=== PATIENT | male | born 1960 | race Caucasian/White ===

== ENCOUNTER → 2017-03-26 | Day surgery (SDC) | payer MEDICAID ==
[~2017-03-26] VITALS: Ht 185.4 cm; Wt 85.5 kg
[~2017-03-26] MED LIST: *MEPERIDINE 25 MG INJ VIAL PERIprocedural Use ONLY ONE; *RESP: ALBUTEROL 2.5 MG/3 ML NEB (PRN) PERIprocedural Use ONLY NEB ONE; ALPR.5 PO; AMPICILLIN 1 GM/NS 100 ML IV SCH; BELLADONNA ALKALOIDS/OPIUM 60 MG SUPP RECTAL ONE; CHLORHEXIDINE GLUCONATE 2 % 1 PACK (2 CLOTHS) TOPICAL PRN; DEXA4TAB PO; DEXAMETHASONE SOD PHOS 4 MG/ML VIAL IV ONE; DO NOT ADM ANY ANTICOAGULANT DRUGS PRN; FENT25DI T-DERMAL; FOLI400T PO; GENTAMICIN INJ 240 MG in SODIUM CHLORIDE 0.9% INJ 100 ML IV SCH; GLYCOPYRROLATE 1 MG/5 ML SYRINGE IV PUSH ONE; INSULIN HUMAN REGULAR 1,000 UNITS/10 ML VIAL SQ PRN; IOHEXOL 350 MG/ML 50 ML BTL (for RAD DIAG) OTHER ONE; LACTATED RINGER'S 1000 ML IV PRN; LEVE500 PO; LIDOCAINE HCL 1% PF 5 ML SYRINGE OTHER ONE; MEGE40SU PO; METOPROLOL TARTRATE 25 MG TAB PO PRN; MORPHINE SULFATE 2 MG/ML INJ IV PUSH PRN; NEOSTIGMINE 5 MG/5 ML SYRINGE IV PUSH ONE; ONDA8TAB7 PO; ONDANSETRON HCL 4 MG/2 ML VIAL IV ONE; ONDANSETRON HCL 4 MG/2 ML VIAL IV PUSH PRN; OXYC-395 PO; OXYC15TA PO; PANT40TA3 PO; POVIDONE IODINE 5% (ANTISEPSIS KIT) 4 APPLICATIONS EACH NARE PRN; PROPOFOL 200 MG/20 ML AMP IV ONE; ROCURONIUM INJ 50 MG/5 ML SYRINGE IV PUSH ONE; SODIUM CHLORID 0.9% 500 ML IV PRN; XARE20TA PO; oxyCODONE/ACETAMINOPHEN 5 MG/325 MG TAB ONE; oxyCODONE/ACETAMINOPHEN 5 MG/325 MG TAB PO PRN
--- NOTE | 2017-03-26 10:46 | RADRPT ---
EXAM DATE/TIME: 03/26/2017 10:12 [place] COMPARISON: No previous studies available for comparison. INDICATIONS : Pre op for kidney stones MEDICAL HISTORY : kidney stones for many years SURGICAL HISTORY : stent for kidney stones ENCOUNTER: Initial ACUITY: 1 day PAIN SCORE: 10/10 LOCATION: Bilateral abdomen FINDINGS: A double-J left ureteral stent is present in good position. There is a 17 mm stone overlying the prox imal aspect of the stent in the proximal left ureter. There also appears to be a slightly less than 1 0 mm stone in the mid to lower pole collecting system. Intestinal gas pattern is nonspecific and tish gn. There are degenerative changes in the bony elements. CONCLUSION: Left kidney and ureteral stones. Left ureteral stent in good position Keith Abbasi MD on March 26, 2017 at 10:41 Board Certified Radiologist. This report was verified electronically.
[2017-03-26 11:24] LABS: AUTOMATED NEUTROPHIL # 11.3 TH/MM3 (1.8-7.7); BASOPHIL # 0.1 TH/MM3 (0-0.2); BASOPHIL % 0.5 % (0.0-2.0); EOSINOPHIL # 0.2 TH/MM3 (0-0.4); EOSINOPHIL % 1.8 % (0.0-4.0); HEMATOCRIT 44.1 % (39.0-51.0); HEMOGLOBIN 15.1 GM/DL (13.0-17.0); LYMPH % 3.9 % (9.0-44.0); LYMPHOCYTE # 0.5 TH/MM3 (1.0-4.8); MEAN CELL VOLUME 96.8 FL (80.0-100.0); MEAN CORPUSCULAR HEMOGLOBIN 33.2 PG (27.0-34.0); MEAN CORPUSCULAR HGB CONC 34.3 % (32.0-36.0); MEAN PLATELET VOLUME 7.5 FL (7.0-11.0); MONO % 4.3 % (0.0-8.0); MONOCYTE # 0.5 TH/MM3 (0-0.9); NEUT % 89.5 % (16.0-70.0); PLATELET COUNT 229 TH/MM3 (150-450); RED BLOOD COUNT 4.56 MIL/MM3 (4.50-5.90); RED CELL DISTRIBUTION WIDTH 14.1 % (11.6-17.2); WHITE BLOOD COUNT 12.6 TH/MM3 (4.0-11.0)
--- NOTE | 2017-03-26 14:38 | EKG ---
Date Performed: 03/26/2017 Time Performed: 10:31:01 PTAGE: 56 years EKG: Sinus rhythm NONSPECIFIC T-WAVE ABNORMALITY POSSIBLE INFERIOR INFARCT, AGE UNDETERMINED BORDERLINE ECG NO PREVIOUS TRACING DOCTOR: Vinay Perry Interpretating Date/Time 03/26/2017 14:33:03
--- NOTE | 2017-03-26 15:31 | PD.OP ---
Operative Report Date of Surgery: Mar 26, 2017 Preoperative Diagnosis: Left ureteral and renal stones Postoperative Diagnosis: Same Procedure: Cystoscopy, left ureteroscopy, laser lithotripsy, stone extraction, left double- J stent exchange Anesthesia: WALTER Surgeon: Ke Carrasco Standards Analyst(s): None Resident Surgeon: None Operation and Findings: 56-year-old male with history of metastatic lung cancer and history of recurrent nephrolithiasis. Patient had a stent placed in the past [facility] and was referred to the clinic. CT scan revealed a 1.7 proximal left ureteral stone and a 1 cm left renal stone. Patient also with history of a fractured left rib due to his disease. Decision made to bring the patient to the operating room and undergo cystoscopy with left ureteroscopy, laser lithotripsy and stone extraction with left double-J stent exchange. Risk and benefits were discussed preoperatively and he was willing to proceed. Patient brought to the operating room and identified by myself as Joss Carl. He was placed in the dorsal lithotomy position, prepped and draped in usual sterile fashion, received preprocedure antibiotics, and general endotracheal tube anesthesia was administered. 22 Vietnamese cystoscope was inserted in the bladder and the left ureter stent was identified. Using the alligator grasper the stent was brought to the urethral meatus. A 0.35 sensor wires and passed through the stent leaving the wire with a good curl in the kidney. The stent was then removed. The long rigid ureteroscope was then used to identify the stone was is in the proximal left ureter. Using the 365 laser fiber with a setting of 8 and 1000, the stone was then fragmented. Multiple stone fragments were noted and using the nitinol basket some of these were then retrieved. The rigid ureteroscope was then removed. The flexible ureteroscope was then passed up through a navigator ureteral access sheath and then the other stone within the kidney was identified. Using the laser fiber the stone was then fragmented into many pieces. The nitinol basket was then used to retrieve the small residual stone fragments. Once this was done the decision made to leave a stent in position. The scope was then backloaded over the wire and a 6 Vietnamese 24 cm left double-J stent was placed with a good curl in the kidney and in the bladder. The residual stone fragments should be small enough to pass on their own. The patient was awoken and extubated transferred to the recovery room in stable condition. The stent will be removed in 1 month in the office. Ke Carrasco DO Mar 26, 2017 15:31
[2017-03-26 17:30] VITALS: BP 123/90; PULSE 80; RESP 20; TEMP 98.2; O2SAT 99
== END | disposition home or self-care (01) ==
LOC: HSDC 09:44
PROVIDERS: ATTEND Urology
DX: N20.2 Calculus of kidney with calculus of ureter (principal); R94.31 Abnormal electrocardiogram [ECG] [EKG]
CPT/HCPCS: 00918; 52356; 74018; 82365; 82370; 85025; 88300; 93005; 94664; C1726; C1769; J0290; J1100; J1580; J2175; J2405; J2710; J3010; J7120; J7613; Q9967